=== PATIENT | female | born 1970 | race Caucasian/White ===

== ENCOUNTER 2018-08-26 01:44 | Emergency (ER) | payer OTHER ==
[2018-08-26] MEDS: ONDANSETRON 4 MG INJ IV (02:15)
[2018-08-26] MEDS: FENTAnyl 50 MCG/ML VIAL IV (02:15)
[2018-08-26] MEDS: KETOROLAC 30 MG INJ IV (04:44)
== END 2018-08-26 04:52 | disposition home or self-care (01) ==
LOC: E/R 01:44
DX: S49.91XA Unspecified injury of right shoulder and upper arm, initial encounter (principal); S19.9XXA Unspecified injury of neck, initial encounter; R07.9 Chest pain, unspecified; W18.39XA Other fall on same level, initial encounter; Y92.9 Unspecified place or not applicable
CPT/HCPCS: 70450; 71045; 72125; 73030-RT; 73060-RT; 96374; 96375; 99285-25